=== PATIENT | female | born 1980 | race Caucasian/White ===

== ENCOUNTER 2017-11-07 10:20 | Outpatient (CLI) ==
[2015-07-07 17:03] VITALS: BMI 34.7
== END 2017-11-07 10:21 | disposition home or self-care (01) ==
LOC: LAB 10:20
PROVIDERS: ATTEND Family Medicine
DX: E28.2 Polycystic ovarian syndrome (principal); E55.9 Vitamin D deficiency, unspecified; I10 Essential (primary) hypertension; N64.59 Other signs and symptoms in breast
CPT/HCPCS: 36415; 80053; 80061; 82306; 83036; 83525; 84439; 84443; 85027

== ENCOUNTER 2018-08-10 08:08 | Outpatient (CLI) ==
[2015-07-07 17:03] VITALS: BMI 34.7
== END 2018-08-10 08:09 | disposition home or self-care (01) ==
LOC: LAB 08:08
PROVIDERS: ATTEND Family Medicine
DX: Z00.00 Encounter for general adult medical examination without abnormal findings (principal); I10 Essential (primary) hypertension; E55.9 Vitamin D deficiency, unspecified; R73.9 Hyperglycemia, unspecified
CPT/HCPCS: 36415; 80053; 80061; 82306; 83036; 83525; 84436; 84443; 84480; 84550; 85027

== ENCOUNTER 2018-12-10 15:46 | Outpatient (CLI) ==
[2015-07-07 17:03] VITALS: BMI 34.7
== END 2018-12-10 15:47 | disposition home or self-care (01) ==
LOC: LAB 15:46
PROVIDERS: ATTEND Family Medicine
DX: R53.83 Other fatigue (principal); R53.81 Other malaise; R42 Dizziness and giddiness; R73.9 Hyperglycemia, unspecified; E55.9 Vitamin D deficiency, unspecified; E28.2 Polycystic ovarian syndrome; I10 Essential (primary) hypertension; I34.8 Other nonrheumatic mitral valve disorders
CPT/HCPCS: 36415; 80053; 82306; 82607; 82746; 83036; 84439; 84443; 85025; 93005; 93010

== ENCOUNTER 2018-12-14 08:58 | Outpatient (CLI) ==
[2015-07-07 17:03] VITALS: BMI 34.7
== END 2018-12-14 08:59 | disposition home or self-care (01) ==
LOC: LAB 08:58
PROVIDERS: ATTEND Family Medicine
DX: E28.2 Polycystic ovarian syndrome (principal); E55.9 Vitamin D deficiency, unspecified; I10 Essential (primary) hypertension; R53.83 Other fatigue; R42 Dizziness and giddiness; I34.8 Other nonrheumatic mitral valve disorders; R73.9 Hyperglycemia, unspecified
CPT/HCPCS: 36415; 80061; 83525

== ENCOUNTER 2018-12-20 07:18 | Outpatient (CLI) ==
[2015-07-07 17:03] VITALS: BMI 34.7
--- NOTE | 2018-12-20 08:09 | US ---
Exam: Jara-scale and color Doppler ultrasonographic evaluation of the liver, gallbladder and common bile duct. Spectral waveform analysis was performed. Reason for exam: Abnormal labs. Comparison: 12/20/2009 FINDINGS: The liver measures 13.5 cm in length without perihepatic free fluid or ductal dilatation. There is normal antegrade portal venous flow. The gallbladder is not seen and presumably has been removed. Common bile duct measures 0.5 cm without evidence of intraluminal stone or polyp. The partially imaged pancreas appears grossly unremarkable. The right kidney measures 12.4 x 4.8 x 5.1 cm without obvious hydronephrosis or nephrolithiasis. Impression: 1. No acute ultrasonographic findings are seen within the liver and gallbladder fossa or common bile duct. 2. No right-sided hydronephrosis or nephrolithiasis is seen on the exam.
== END 2018-12-20 07:19 | disposition home or self-care (01) ==
LOC: RAD 07:18
PROVIDERS: ATTEND Family Medicine
DX: R94.5 Abnormal results of liver function studies (principal)
CPT/HCPCS: 36415; 80074

== ENCOUNTER 2019-02-07 15:22 | Outpatient (CLI) | payer OTHER ==
[2015-07-07 17:03] VITALS: BMI 34.7
== END 2019-02-07 15:23 | disposition home or self-care (01) ==
LOC: LAB 15:22
PROVIDERS: ATTEND Family Medicine
DX: R42 Dizziness and giddiness (principal); R53.83 Other fatigue; Z00.00 Encounter for general adult medical examination without abnormal findings; E28.2 Polycystic ovarian syndrome; E55.9 Vitamin D deficiency, unspecified; I10 Essential (primary) hypertension; K21.9 Gastro-esophageal reflux disease without esophagitis; L20.83 Infantile (acute) (chronic) eczema
CPT/HCPCS: 36415; 80053; 82248; 82306; 83036